=== PATIENT | male | born 1960 | race Caucasian/White ===

== ENCOUNTER 2018-10-10 08:37 | Observation (INO) ==
--- NOTE | 2018-10-10 09:08 | Emergency Department Note ---
Disposition Clinical Impression: Near syncope, Palpitations Chest pain Qualifiers: Chest pain type: unspecified Qualified Code(s): R07.9 - Chest pain, unspecified Disposition: Admitted As Inpatient Condition: Fair Time of Disposition: 12:57 General Adult HPI - General Chief complaint: ED General Medical Stated complaint: Left leg injury,congestion,palpitations Time Seen by Provider: 10/10/18 09:04 Source: patient Mode of arrival: ambulatory Limitations: no limitations Nursing Notes Reviewed: Yes Vital Signs Reviewed: Yes - History of Present Illness HPI Narrative: Patient is a 57-year-old male presenting with chest pain and congestion. 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 Patient is presenting with 1 week of intermittent chest pain, which she describes to be in the middle of his chest, discusses as a sharp shooting pain with associated shortness of breath on exertion. He is also had a dry cough for the past week and a half. No production, no fevers or chills. He denies any diaphoresis, nausea or vomiting. He also has associated palpitations and feeling as though his heart is racing, he is concerned as he has had difficulty with his pacemaker in the past and lead placement. Patient also reports occasional lightheaded and dizziness, this is also appears to be exertional in nature. He states that he has not had a syncopal episodes. He has had similar episodes in the past, at th at point in time it was due to pacemaker malfunction. He is concerned this is happening again. Patient also states that yesterday, he was getting out of his van, stepped down and heard a snap to his left lower leg, he denies any knee or ankle pain. He states that at the posterior calf region. He denies any leg swelling, erythema, numbness or tingling or change in strength. He has a chronic foot drop which is not worsened. He has been able to walk without difficulty since this time. Pain Scale: 9 - Related Data Home Medications Medication Instructions Recorded Confirmed Allopurinol [Zyloprim 100 MG] 100 mg PO DAILY 09/27/15 07/28/18 Cholecalciferol (D-3) [Vitamin D] 1,000 unit PO DAILY 01/02/17 07/28/18 metFORMIN [Glucophage] 500 mg PO DAILY 09/04/17 07/28/18 Allergies Allergy/AdvReac Type Severity Reaction Status Date / Time hydromorphone [From Dilaudid] AdvReac Nausea Verified 10/10/18 08:39 oxycodone [Oxycodone] AdvReac Nausea Verified 10/10/18 08:39 simvastatin AdvReac See Verified 10/10/18 08:39 Comments All systems ED: reviewed and negative except as stated. Review of Systems: As Per HPI Constitutional: Denies: fever, chills ENT ED: Reports: congestion Cardiovascular: Reports: chest pain, palpitations, dyspnea on exertion. Denies: orthopnea, edema, syncope Respiratory: Reports: cough, dyspnea, wheezes. Denies: hemoptysis, sputum production Gastrointestinal: Denies: abdominal pain, nausea, vomiting, diarrhea, hematemesis Genitourinary: Denies: urgency, dysuria, frequency Musculoskeletal: Denies: back pain Integumentary: Denies: rash Neurological: Denies: headache, weakness, numbness, confusion Endocrine: Denies: fatigue Past Medical History - Past Medical History Medical history: Reports: non-contributory, arthritis, diabetes, GERD, hyperlipidemia, hypertension, other Surgical history: Reports: other Psychiatric history: Reports: anxiety - Social History Smoking Status: Never smoker Smokeless Tobacco Status: No Alcohol use: Reports: none Drug use: Reports: none Physical Exam - General Limitations: no limitations General appearance: alert, in no apparent distress - Head Head exam: atraumatic, normocephalic, normal inspection - Eye Eye exam: Present: normal appearance, PERRL, EOMI - ENT ENT exam: normal exam, normal oropharynx, mucous membranes moist - Neck Neck exam: Present: normal inspection, full ROM, trachea midline - Chest Chest inspection: Present: normal inspection, symmetric chest wall rise - Respiratory Respiratory exam: Present: other (Patient with diffuse expiratory wheezing, prolonged expiratory phase, patient with also rhonchi to the left base, no crackles) - Cardiovascular Cardiovascular exam: Present: regular rate, normal rhythm, normal heart sounds - Abdominal Exam Abdominal exam: Present: soft, Non-Tender. Absent: tenderness, distention, guarding, rebound, rigidity - Extremities Exam Extremities exam: Present: normal capillary refill, other (Patient with chronic weakness in the left leg, with a foot drop, therefore has weakened dorsiflexion, and this is unchanged from his baseline, pulses distally are intact, sensation is intact, no change in chronic strength weakness to the left side, and no change to the right side, able to move all 4 extremities, patient does have tenderness to palpation to the posterior calf the left leg, without erythema, swelling or palpable cord, there is no family in the tibia, fibula, knee or ankl e, there is no step-off, crepitus or obvious deformity. Range of motion is intact.) - Back Exam Back exam: Present: normal inspection, full ROM. Absent: tenderness - Neurological Exam Neurological exam: Present: alert, oriented X3 - Psychiatric Psychiatric exam: Present: normal affect, normal mood - Skin Skin exam: Present: warm, dry, intact, normal color Course Vital Signs Temperature 98.3 F 10/10/18 08:39 Pulse Rate 74 10/10/18 08:39 Respiratory Rate 18 10/10/18 08:39 Blood Pressure 165/109 10/10/18 08:39 O2 Sat by Pulse Oximetry 99 10/10/18 08:39 Temperature 98.3 F 10/10/18 09:10 Pulse Rate 68 10/10/18 11:09 Respiratory Rate 18 10/10/18 11:09 Blood Pressure 137/78 10/10/18 11:09 O2 Sat by Pulse Oximetry 95 10/10/18 11:09 Oxygen Delivery Oxygen Delivery Room Air Medical Decision Making - [facility] Narrative Medical decision making narrative: Patient is a 57-year-old male who is presenting with chest pain, lightheaded dizziness and presyncopal episodes. Patient on examination is alert 3, in no acute distress. EKG was performed which shows ventricularly paced rhythm without acute ischemic changes. Given concerns, CBC, BMP, troponin, EKG and chest x-ray was performed. The patient has had recurrent symptoms, feels a CTA would be most appropriate to evaluate further chest etiology. CTA shows no acute findings no sign of any pulmonary embolism or congestion. Chest x-ray shows possible atelectasis to the left base, but no acute opacification or infection. Blood work performed including CBC, BMP, troponin are all within normal limits. Patient was walked while here in the ER by the [employer], during this walk became very lightheaded and dizzy and presyncopal, vital signswithin normal limits. Feels though this patient is appropriate for admission at this point in time, with history of pacemaker issues with recurrent symptoms, as well as this chest pain and exertional shortness of breath that is been recurring, pacemaker was interrogated which showed no acute abnormalities. At this point in time, with the patient's agreement disposition will be to admit for further observation and evaluation. - Medical Records Medical records reviewed: Yes I reviewed the patient's medical records. - Lab Data Lab results reviewed: Yes I reviewed the patient's lab results. Result diagrams: 10/10/18 08:52 10/10/18 08:52 Lab Results 10/10/18 10/10/18 Range/Units 08:52 08:52 WBC 8.6 (4.3-11.1) K/mcL RBC 5.26 (4.19-5.50) M/mcL Hgb 15.7 (12.9-16.9) g/dL Hct 49.5 (37.5-50.1) % MCV 94.1 (83.0-100.0) fL MCH 29.8 (28.0-33.3) pg MCHC 31.7 (31.6-35.5) g/dL RDW 12.9 (11.5-14.5) % Plt Count 302 (140-400) K/mcL MPV 8.3 L (9.4-12.4) fL Immature Gran % 0.5 (0-4) % Seg Neutrophils % 56.9 % Lymphocytes % 27.1 % Monocytes % 10.6 % Eosinophils % 3.6 % Basophils % 1.3 % Neutrophils # 4.9 (1.6-8.9) K/mcL Lymphocytes # 2.3 (0.6-4.6) K/mcL Monocytes # 0.9 (0.0-1.3) K/mcL Eosinophils # 0.3 (0.0-0.6) K/mcL Basophils # 0.1 (0.0-0.2) K/mcL Sodium 136 (136-145) mEq/L Potassium 4.5 (3.5-5.1) mEq/L Chloride 100 (98-107) mEq/L Carbon Dioxide 30 H (23-29) mEq/L BUN 14 (6-20) mg/dL Creatinine 0.58 L (0.70-1.30) mg/dL Est GFR ( Amer) > 60 (> 60) Est GFR (Non-Af Amer) > 60 (> 60) BUN/Creatinine Ratio 24 (6-26) Glucose 119 H (70-105) mg/dL Calculated Osmolality 284 (280-300) Calcium 9.5 (8.6-10.3) mg/dL Phosphorus 2.5 L (2.7-4.5) mg/dL Magnesium 1.8 (1.6-2.6) mg/dL Troponin I < 0.03 (< 0.04) ng/mL - Radiology Data Radiology results reviewed: Yes I reviewed the patient's radiology results. Chest X-Ray 10/10/18 08:42 IMPRESSION: Low lung volumes. Mild atelectasis at the left lung base. No acute cardiopulmonary disease. D/ / Trent Mendoza MD / Trent Mendoza MD Interpreting Provider: Trent Mendoza MD Chest CTA 10/10/18 09:56 IMPRESSION: No evidence of pulmonary embolism or acute pulmonary abnormality. D/ / Lenny Stuart MD / Lenny Stuart MD Interpreting Provider: Lenny Stuart MD - EKG Data EKG #1 EKG attestation: Yes I reviewed and interpreted this EKG. EKG results narrative: EKG performed at 0 846 and with ventricular rate of 73, patient with ventricularly paced rhythm without significant ST segment elevation, depression or T-wave changes. Compared to old EKG performed on 08/2018, does appear change as at that point in time it appears to have atrial and ventricular paced rhythm. Overall overt morphology is relatively unchanged. Attestation Statement - Attestation Attestation: I, Genaro Yuan DO, examined this patient [id number] and my medical decision-making was reviewed with Dr. Mercy Yancey , Resident Physician. I agree with the documented findings, disposition and treatment plan as described except to the extent set forth below. I personally supervised and was present for the blood/critical portions of the procedures completed by the resident documented below. Please see my progress notes for details.
[2018-10-10 09:48] LABS: Basophils # 0.1 K/mcL (0.0-0.2); Basophils % 1.3 %; Eosinophils # 0.3 K/mcL (0.0-0.6); Eosinophils % 3.6 %; Hematocrit 49.5 % (37.5-50.1); Hemoglobin 15.7 g/dL (12.9-16.9); Immature Granulocytes % 0.5 % (0-4); Lymphocytes # 2.3 K/mcL (0.6-4.6); Lymphocytes % 27.1 %; Mean Corpuscular HGB Conc 31.7 g/dL (31.6-35.5); Mean Corpuscular Hemoglobin 29.8 pg (28.0-33.3); Mean Corpuscular Volume 94.1 fL (83.0-100.0); Mean Platelet Volume 8.3 fL (9.4-12.4); Monocytes # 0.9 K/mcL (0.0-1.3); Monocytes % 10.6 %; Neutrophils # 4.9 K/mcL (1.6-8.9); Platelet Count 302 K/mcL (140-400); Red Blood Count 5.26 M/mcL (4.19-5.50); Red Cell Distribution Width 12.9 % (11.5-14.5); Segmented Neutrophils % 56.9 %; White Blood Count 8.6 K/mcL (4.3-11.1)
[2018-10-10] MEDS ORDERED: Ipratropium/Albuterol Neb 3 ML IH ONE (09:54)
[2018-10-10] MEDS ORDERED: Isovue-370 500 ML BOTTLE IVP ONE (09:56)
[2018-10-10 10:09] LABS: BUN/Creatinine Ratio 24 (6-26); Blood Urea Nitrogen 14 mg/dL (6-20); Calcium 9.5 mg/dL (8.6-10.3); Carbon Dioxide 30 mEq/L (23-29); Chloride 100 mEq/L (98-107); Glucose 119 mg/dL (70-105); Osmolality,Calculated 284 (280-300); Potassium 4.5 mEq/L (3.5-5.1); Sodium 136 mEq/L (136-145); Troponin I < 0.03 ng/mL (< 0.04); eGFR For African Americans > 60 (> 60); eGFR For Non-African Americans > 60 (> 60)
--- NOTE | 2018-10-10 10:24 | Emergency Department Note ---
Disposition Clinical Impression: Near syncope, Palpitations Disposition: Admitted As Inpatient Condition: Fair Referrals: NONE,PCP [Primary Care Provider] - Forms: ED Satisfaction Letter, Work/School Release Time of Disposition: 12:58 General Adult HPI - General Chief complaint: ED General Medical Stated complaint: Left leg injury,congestion,palpitations Time Seen by Provider: 10/10/18 09:04 Source: patient Limitations: no limitations - History of Present Illness Pain Scale: 9 - Related Data Home Medications Medication Instructions Recorded Confirmed Allopurinol [Zyloprim 100 MG] 100 mg PO DAILY 09/27/15 07/28/18 Cholecalciferol (D-3) [Vitamin D] 1,000 unit PO DAILY 01/02/17 07/28/18 metFORMIN [Glucophage] 500 mg PO DAILY 09/04/17 07/28/18 Allergies Allergy/AdvReac Type Severity Reaction Status Date / Time hydromorphone [From Dilaudid] AdvReac Nausea Verified 10/10/18 08:39 oxycodone [Oxycodone] AdvReac Nausea Verified 10/10/18 08:39 simvastatin AdvReac See Verified 10/10/18 08:39 Comments Past Medical History - Past Medical History Medical history: Reports: non-contributory, arthritis, diabetes, GERD, hyperlipidemia, hypertension, other Surgical history: Reports: other Psychiatric history: Reports: anxiety - Social History Smoking Status: Never smoker Smokeless Tobacco Status: No Alcohol use: Reports: none Drug use: Reports: none Physical Exam - General Limitations: no limitations General appearance: alert Course Vital Signs Temperature 98.3 F 10/10/18 08:39 Pulse Rate 74 10/10/18 08:39 Respiratory Rate 18 10/10/18 08:39 Blood Pressure 165/109 10/10/18 08:39 O2 Sat by Pulse Oximetry 99 10/10/18 08:39 Temperature 98.3 F 10/10/18 09:10 Pulse Rate 68 10/10/18 11:09 Respiratory Rate 18 10/10/18 11:09 Blood Pressure 137/78 10/10/18 11:09 O2 Sat by Pulse Oximetry 95 10/10/18 11:09 Oxygen Delivery Oxygen Delivery Room Air Medical Decision Making - Lab Data Result diagrams: 10/10/18 08:52 10/10/18 08:52 Lab Results 06/23/19 06/23/19 Range/Units 08:52 08:52 WBC 8.6 (4.3-11.1) K/mcL RBC 5.26 (4.19-5.50) M/mcL Hgb 15.7 (12.9-16.9) g/dL Hct 49.5 (37.5-50.1) % MCV 94.1 (83.0-100.0) fL MCH 29.8 (28.0-33.3) pg MCHC 31.7 (31.6-35.5) g/dL RDW 12.9 (11.5-14.5) % Plt Count 302 (140-400) K/mcL MPV 8.3 L (9.4-12.4) fL Immature Gran % 0.5 (0-4) % Seg Neutrophils % 56.9 % Lymphocytes % 27.1 % Monocytes % 10.6 % Eosinophils % 3.6 % Basophils % 1.3 % Neutrophils # 4.9 (1.6-8.9) K/mcL Lymphocytes # 2.3 (0.6-4.6) K/mcL Monocytes # 0.9 (0.0-1.3) K/mcL Eosinophils # 0.3 (0.0-0.6) K/mcL Basophils # 0.1 (0.0-0.2) K/mcL Sodium 136 (136-145) mEq/L Potassium 4.5 (3.5-5.1) mEq/L Chloride 100 (98-107) mEq/L Carbon Dioxide 30 H (23-29) mEq/L BUN 14 (6-20) mg/dL Creatinine 0.58 L (0.70-1.30) mg/dL Est GFR ( Amer) > 60 (> 60) Est GFR (Non-Af Amer) > 60 (> 60) BUN/Creatinine Ratio 24 (6-26) Glucose 119 H (70-105) mg/dL Calculated Osmolality 284 (280-300) Calcium 9.5 (8.6-10.3) mg/dL Phosphorus 2.5 L (2.7-4.5) mg/dL Magnesium 1.8 (1.6-2.6) mg/dL Troponin I < 0.03 (< 0.04) ng/mL Attestation Statement - Attestation Attestation: I, Genaro Yuan DO, examined this patient [id number] and my medical decision-making was reviewed with Dr. Mercy Yancey , Resident Physician. I agre e with the documented findings, disposition and treatment plan as described except to the extent set forth below. I personally supervised and was present for the blood/critical portions of the procedures completed by the resident documented below. Please see my progress notes for details. 57-year-old male presents emergency room with several nondescript complaints. Patient injured his left knee will getting up and felt a pop. His had no gross deformity and is been able to walk on the knee since the event. Patient denies any trauma or injuries otherwise. He is also had intermittent palpitations as well as lightheaded sensation. His only had this one other time in the past when his pacemaker leads were not functioning appropriately and the needed a new pacemaker placed. Patient denies any active chest pain shortness of breath fevers or chills at this time. Currently denying any nausea vomiting or diarrhea. He has no headache no vision change. Lungs are clear heart is regular. Abdomen is soft. No guarding no rigidity no peritoneal symptoms noted at this time. Extremities otherwise normal. Left lower extremity shows mild swelling to the knee but no redness warmth or abnormality. No gross deformity at this time. Patient has chronic foot drop secondary to his muscular dystrophy. Based on the described symptoms, the patient will have EKG chest x- ray CBC chemistry troponin and a lecture light collected here in the emergency department. Discussion will be had about possible CT angiography the chest if the patient's chest x-ray is negative considering his had intermittent persistent cough. Patient will have pacemaker interrogation completed as well. He has no acute neurologic deficits or issues and does not have any concerning findings on physical exam that would justify imaging of the head at this time. Patient is describing lightheadedness and symptoms as similar to previous when he had the pacemaker related issues. Patient is also describing palpitations. Will monitor closely in emergency room until disposition is determined. EKG is reviewed by myself in documented in the resident physician's note. No critical care applied the patient's treatment course at this time. See detailed documentation the physical exam, medical intervention, medical decision-making disposition the resident physician's note. [address] angiography of the chest for any acute signs of pulmonary emboli or infection. The pacemaker was interrogated and all the leads are functioning appropriately with no abnormality. Function is appropriate as well. Patient is otherwise clinical stable. We will discuss the findings and then ambulate the patient on emergency department to see if there is any reproducible symptoms at this time. Patient is otherwise in no distress 1145 Patient walked around the emergency room. Pulse ox is normal but the patient did feel very lightheaded during several different events. Fluids have been provided regarding in the emergency department. Discussion will be had about disposition. 1235 Patient was discussed with the hospitalist Dr. hillman. Patient was symptomatic with walking which is concerning at this time secondary to his described history of identical complaint when he had a cardiac arrhythmia that required pacemaker placement. He did just have his pacemaker replaced in June. There is some concern for decompensated heart condition at this point despite the pacemaker functioning at this time. The results from the pacemaker interrogation otherwise normal. Patient will be admitted for intermittent near-syncopal event secondary to exertion and further cardiac evaluation. No other concerns or issues noted. Patient is otherwise clinical stable to time of admission.
[2018-10-10 10:34] LABS: Magnesium 1.8 mg/dL (1.6-2.6); Phosphorous 2.5 mg/dL (2.7-4.5)
[2018-10-10] MEDS ORDERED: 0.9 % Sodium Chloride 1,000 ML IVC ONE (11:51)
[2018-10-10] MEDS ORDERED: Ondansetron 4 MG/2 ML VIAL IVP PRN (13:46)
[2018-10-10] MEDS ORDERED: Nitroglycerin 0.4 MG TAB.SUBL SL PRN (13:46)
[2018-10-10] MEDS ORDERED: Ipratropium/Albuterol Neb 3 ML IH PRN (13:50)
[2018-10-10] MEDS ORDERED: Dextrose Gel 15 GM/37.5 ML TUBE PO PRN ×2 (13:53)
[2018-10-10] MEDS ORDERED: *HR* Dextrose 50 % in Water (Syg) 50 ML SYRINGE IVP PRN (13:53)
[2018-10-10] MEDS ORDERED: D5% in Water 1,000 ML IVC PRN (13:53)
--- NOTE | 2018-10-10 13:58 | Internal Med History&Physical ---
Date of Encounter: 10/10/18 Time of Encounter: 13:55 Internal Medicine - H&P: HPI Chief complaint: dizzy spell with chest pain Admitted From: Home History of present illness: Mr. Steward is a 57 year old male with history of complete heart block status post pacemaker placement on 07/27/2018, history of diabetes and his history of muscular dystrophy with chronic feet drop, presented to the ER with chief complaint of left leg pain associated with spell of dizziness on intermittent chest pain. Patient had normal cardiac stress test done in July 2018 with normal ejection fraction 70%. After the patient had LHC done in 2012 with mild CAD. The patient states that he develops spell of intermittent severe left-sided chest pain associated with palpitation and dizziness about once a week, the last episode was on last while the patient was sitting on chair he felt dizzy with 3 episodes of chest pain , Lasted for a second associated with the palpitations and sweating and feeling weak, he stated that is all symptoms similar to the situation before the placement of pacemaker. Patient injured his left knee while getting up yesterday and felt a pop and still has severe leg pain especially when put weight on his leg. Patient denies any trauma or injuries otherwise, patient underwent CT angiography of the chest in the ER without any evidence of pulmonary embolism or infection. Also the pacemaker was interrogated and all digits where functioning appropriately with no abnormality. Patient also reports cough with mild shortness of breath mainly on exertion. He denies smoking cigarettes. Patient has mild hyperphosphatemia otherwise all his labs within normal As for the patient reported bilateral arm numbness with pain, patient had wrist arthrodesis on 2018 Past Med Surg Social Fam HX - Past Medical History Medical history: non-contributory, arthritis, diabetes, GERD, hyperlipidemia, hypertension, other Additional medical history: Muscular dystrophy Psychiatric history: anxiety - Past Surgical History Surgical History: other Additional surgical history: back surgery-2001, ear tube as a child, tonsillectomy as a child, colonoscopy-2001, EGD-2008, heart cath no stents placed-2008, left wrist endoscopic carpal tunnel release, repair of scapholunate ligament and reinforced with dorsal capsulodesis-2015, left wrist proximal row c arpectomy left wrist radial styloidectomy left wrist excison of posterior interosseous nerve-2016 - Social History Smoking Status: Never smoker Smokeless Tobacco Status: No Alcohol use: none Drug use: none - Family History Mother Living Status: Still Living Hx Family Cardiac Disorders: Yes Hx Family Cancer: Yes Hx Family Endocrine Disorder: Yes Father Living Status: Still Living Internal Medicine - H&P: Meds Allopurinol [Zyloprim 100 MG] 100 mg PO DAILY 09/27/15 [History] Cholecalciferol (D-3) [Vitamin D] 1,000 unit PO DAILY 01/02/17 [History] metFORMIN [Glucophage] 500 mg PO DAILY 09/04/17 [History] Allergy/AdvReac Type Severity Reaction Status Date / Time hydromorphone [From Dilaudid] AdvReac Nausea Verified 10/10/18 08:39 oxycodone [Oxycodone] AdvReac Nausea Verified 10/10/18 08:39 simvastatin AdvReac See Verified 10/10/18 08:39 Comments All Systems PM: A 10-system review of systems was performed and is negative for pertinent findings except as documented above in the HPI. Review of systems: Review of system: Regarding cardiology respiratory GI endocrine hematology musculoskeletal all negative except for multiple was mentioned in the H&P - Constitutional Vitals: Temp Pulse Resp BP Pulse Ox 98.3 F 67 22 137/78 98 10/10/18 09:10 10/10/18 13:38 10/10/18 13:38 10/10/18 13:38 10/10/18 13:38 Exam: Physical examination: Gen.: Patient is alert and oriented, not in respiratory distress of pain HEENT: perrla , EOMI, no thyroid gland enlargement, no neck mass, supple neck Heart: S1 and S2 elvira, normal sinus rhythm, no cardiac murmur no gallop rhythm Chest: Air entry equal bilaterally, diminished breathing bilaterally with expiratory wheezing Abdomen: Soft nontender nondistended positive bowel sounds, no organomegaly Extremities: No pitting edema, peripheral pulses palpable, no cyanosis , left calf muscle tenderness on palpation Neuro: Able to move all 4 limbs, no focal neurological deficit. Internal Med - H&P Results - Labs CBC & Chem 7: 10/10/18 08:52 10/10/18 08:52 Labs: Short CBC 10/10/18 Range/Units 08:52 WBC 8.6 (4.3-11.1) K/mcL Hgb 15.7 (12.9-16.9) g/dL Hct 49.5 (37.5-50.1) % Plt Count 302 (140-400) K/mcL Neutrophils # 4.9 (1.6-8.9) K/mcL BMP 10/10/18 08:52 Sodium 136 Potassium 4.5 Chloride 100 Carbon Dioxide 30 H BUN 14 Creatinine 0.58 L Glucose 119 H Calcium 9.5 Cardiac Enzymes 10/10/18 Range/Units 08:52 Troponin I < 0.03 (< 0.04) ng/mL - Impressions ITS Impressions Chest X-Ray 10/10/18 08:42 IMPRESSION: Low lung volumes. Mild atelectasis at the left lung base. No acute cardiopulmonary disease. D/ / Trent Mendoza MD / Trent Mendoza MD Interpreting Provider: Trent Mendoza MD Chest CTA 10/10/18 09:56 IMPRESSION: No evidence of pulmonary embolism or acute pulmonary abnormality. D/ / Lenny Stuart MD / Lenny Stuart MD Interpreting Provider: Lenny Stuart MD - Assessment and Plan (1) Dizziness Current Visit: Yes Status: Acute Assessment and plan: Patient describes frequent dizziness spell associated with the palpitation. After the patient reports vision disturbances associated with the spell Pacemaker was interrogated and they are on was found to functioning well Keep the patient on telemetry Check thyroid function test Ordering MRI of the brain to rule out posterior stroke No focal neurological deficit on examination (2) Chest pain Current Visit: Yes Status: Acute Assessment and plan: Patient has atypical chest pain however he has risk factor for chronic diseases include diabetes morbid obesity and complete heart block Patient had normal cardiac stress test done in July 2018 with ejection fraction 70% Admitted the patient on telemetry Start on aspirin 81 mg and nitroglycerin sublingual when necessary for chest pain Consult pipe stem aligner Current troponin The patient has mild wheezing on chest examination was start him on small dose by mouth prednisone defer further cardiac workup to pipe stem aligner Check lipid profile order EKG Qualifiers: Chest pain type: unspecified Qualified Code(s): R07.9 - Chest pain, unspecified (3) Complete heart block Current Visit: No Status: Chronic Assessment and plan: Status post pacemaker placement on July 2018 correct hypophosphetemia (4) Diabetes mellitus Current Visit: No Status: Chronic Assessment and plan: start on sliding scale insulin correction hold metformin on diabetic diet check BS achs Qualifiers: Diabetes mellitus type: type 2 Diabetes mellitus alf insulin use: without alf use Diabetes mellitus complication status: without complication Qualified Code(s): E11.9 - Type 2 diabetes mellitus without complications (5) Muscular atrophy Current Visit: Yes Status: Chronic Assessment and plan: Patient has history of the chronic muscular dystrophy with chronic feet drop Patient got left leg injury while getting up yesterday and felt a pop Order venous Doppler of the legs to rule out DVT or hematoma Pt/Ot evaluation Qualifiers: Muscle atrophy area: foot Laterality: unspecified laterality Qualified Code(s): M62.579 - Muscle wasting and atrophy, not elsewhere classified, unspecified ankle and foot - Time Spent With Patient Total time spent is greater than 50% in coordination of care (as documented) at patient's floor/unit and/or counseling patient:
[2018-10-10 14:28] LABS: Estimated Average Glucose 143 mg/dl
[2018-10-10] MEDS ORDERED: Acetaminophen 325 MG TABLET PO PRN (14:33)
[2018-10-10] MEDS: Insulin LISPRO 300 UNITS/3 ML VIAL SQ SCH (14:54)
[2018-10-10] MEDS: Aspirin 81 MG TAB.CHEW PO SCH (14:59)
[2018-10-10] MEDS: PrednisoLONE Oral Soln 15 MG/5 ML UDC PO SCH (15:00)
[2018-10-10 15:29] LABS: Chol/HDL Ratio 4.3 (0-4.9)
[2018-10-10 15:42] LABS: Thyroid Stimulating Hormone 1.117 mcIU/mL (0.340-5.600)
[2018-10-10 17:07] LABS: Adenovirus Not Detected (Not Detect); Bordetella Pertussis Not Detected (Not Detect); Chlamydophila pneumoniae Not Detected (Not Detect); Coronavirus 229E Not Detected (Not Detect); Coronavirus HKU1 Not Detected (Not Detect); Coronavirus NL63 Not Detected (Not Detect); Coronavirus OC43 Not Detected (Not Detect); Human Metapneumovirus Not Detected (Not Detect); Human Rhinovirus/Enterovirus DETECTED (Not Detect); Influenza A Subtype 2009 H1 Not Detected (Not Detect); Influenza A Untypeable Not Detected (Not Detect); Influenza B Not Detected (Not Detect); Mycoplasma pneumoniae Not Detected (Not Detect); Parainfluenza Virus 1 Not Detected (Not Detect); Parainfluenza Virus 2 Not Detected (Not Detect); Parainfluenza Virus 3 Not Detected (Not Detect); Parainfluenza Virus 4 Not Detected (Not Detect); Respiratory Syncytial Virus Not Detected (Not Detect)
[2018-10-10] MEDS ORDERED: Insulin LISPRO 300 UNITS/3 ML VIAL SQ SCH (21:00)
[2018-10-11 02:23] LABS: Eosinophils % 0.6 %; Immature Granulocytes % 0.6 % (0-4); Lymphocytes % 22.1 %; Mean Corpuscular HGB Conc 31.4 g/dL (31.6-35.5); Mean Corpuscular Volume 95.6 fL (83.0-100.0); Monocytes % 8.7 %; Platelet Count 228 K/mcL (140-400); Red Cell Distribution Width 12.9 % (11.5-14.5); White Blood Count 8.8 K/mcL (4.3-11.1)
[2018-10-11 02:24] LABS: Basophils # 0.1 K/mcL (0.0-0.2); Eosinophils # 0.1 K/mcL (0.0-0.6); Hemoglobin 13.5 g/dL (12.9-16.9); Lymphocytes # 1.9 K/mcL (0.6-4.6); Monocytes # 0.8 K/mcL (0.0-1.3); Neutrophils # 5.9 K/mcL (1.6-8.9)
[2018-10-11 02:30] LABS: INR 1.1
[2018-10-11 02:46] LABS: Alanine Aminotransferase 19 Units/L (7-52); Albumin 3.8 g/dL (3.5-5.7); Albumin/Globulin Ratio 1.3 (1.1-2.2); Alkaline Phosphatase 78 Units/L (34-104); Aspartate Amino Transferase 19 Units/L (13-39); BUN/Creatinine Ratio 26 (6-26); Bilirubin,Total 0.4 mg/dL (0.3-1.0); Blood Urea Nitrogen 17 mg/dL (6-20); Carbon Dioxide 25 mEq/L (23-29); Chloride 103 mEq/L (98-107); Glucose 118 mg/dL (70-105); Magnesium 1.8 mg/dL (1.6-2.6); Osmolality,Calculated 283 (280-300); Potassium 4.4 mEq/L (3.5-5.1); Sodium 135 mEq/L (136-145); Total Protein 6.8 g/dL (6.4-8.9); Troponin I < 0.03 ng/mL (< 0.04); eGFR For African Americans > 60 (> 60); eGFR For Non-African Americans > 60 (> 60)
[2018-10-11] MEDS ORDERED: *HR* LORazepam 2 MG/ML VIAL IVP ONE (07:00)
[2018-10-11] MEDS: Insulin LISPRO 300 UNITS/3 ML VIAL SQ SCH ×2 (08:25→12:32)
[2018-10-11] MEDS: PrednisoLONE Oral Soln 15 MG/5 ML UDC PO SCH (08:42)
[2018-10-11] MEDS: Aspirin 81 MG TAB.CHEW PO SCH (08:42)
[2018-10-11] MEDS ORDERED: Cholecalciferol (D-3) 1,000 UNIT TABLET PO SCH (09:00)
--- NOTE | 2018-10-11 10:44 | Electrocardiograph Report ---
[address] [address] Test Date: 2018-10-10 Pat Name: Gary Steward Department: 104 Room: 3B64 Gender: M Housing Case Manager: Moise : 1960 Requested By: Genaro Yuan Order Number: [id number] Reading MD: Tad James Measurements Intervals [place] Rate: 73 P: 57 TX: 161 QRS: -63 QRSD: 165 T: 130 QT: 421 QTc: 447 Interpretive Statements ELECTRONIC VENTRICULAR PACEMAKER Electronically Signed On 10-11-2018 10:43:27 EDT by Tad James
--- NOTE | 2018-10-11 11:44 | Cardiology Consult Note ---
<Shanna Sacnhez - Last Filed: 10/11/18 11:57> Date of Encounter: 10/11/18 Time of Encounter: 10:00 Assessment and Plan (1) Atypical chest pain Current Visit: No Status: Acute Per cardiology: -Patient reports atypical chest pain. States it felt like "3 shocks from my pacemaker." -Pacemaker was interrogated by ER. Report personally reviewed, with normal functioning pacemaker, no events. -Denies exertional chest pain. -Stress test 07/2018 negative for ischemia, possible infarct vs pacing artifact noted. -[facility] 2012 with mild, non-obstructive CAD. -TTE 07/2018 LVEF preserved, no wall motion abnormalities noted. -Denies current chest pain, -ECG with paced rhythm. -Troponins negative. -Will discuss and review with . (2) Pacemaker Current Visit: Yes Status: Acute Per cardiology: -Recent pacemaker 07/2018. -Device interrogated with normal function, no events. -Chest x-ray with stable pacemake position and lead placement. Discussion w patient/family: The assessment and plan as outlined above was discussed with the patient and/or family members who expressed understanding and agreement. All questions were answered. Thank you for involving us in the care of your patient. Please call with any questions. Discussed and reviewed with . History of Present Illness Consult date: 10/10/18 Requesting physician: August Marley Consult reason: chest pain Chief complaint: dizziness, weakness, leg injury History of present illness: Mr. Steward is a 58 year old male with a relevant past medical history of complete heart block s/p pacemaker 07/2018, muscular dystrophy, DM, HTN, HLD, GERD, insomnia, gastritis, hiatal hernia, ROMI, who presented to [facility] with complaints of left leg injury. While in ER, patient also reported chest pain. Patient also reported weakness, fatigue. Reports dizziness. Reported left sided weakness and numbness also. Regarding chest pain, patient reports he felt "3 shocks from my pacemaker last week." Denies exertional chest pain. Patient states dizziness is mostly with position change. Also complains of cough, congestion, and having a "cold." Denies current chest pain. Past Med Surg Social Fam HX - Past Medical History Attestation: Yes The following information was validated with the patient. Source: patient Medical history: non-contributory, arthritis, diabetes, GERD, hyperlipidemia, hypertension, other Additional medical history: Muscular dystrophy Psychiatric history: anxiety - Past Surgical History Surgical History: other Additional surgical history: back surgery-2001, ear tube as a child, t onsillectomy as a child, colonoscopy-2001, EGD-2008, heart cath no stents placed-2008, left wrist endoscopic carpal tunnel release, repair of scapholunate ligament and reinforced with dorsal capsulodesis-2015, left wrist proximal row carpectomy left wrist radial styloidectomy left wrist excison of posterior interosseous nerve-2016 - Social History Smoking Status: Never smoker Smokeless Tobacco Status: No Alcohol use: none Drug use: none - Family History Mother Living Status: Still Living Hx Family Cardiac Disorders: Yes Hx Family Cancer: Yes Hx Family Endocrine Disorder: Yes Father Living Status: Still Living Hx Family Cardiac Disorders: Yes (heart cath placed 2013) Medications and Allergies Allopurinol [Zyloprim 100 MG] 100 mg PO DAILY 09/27/15 [History] Cholecalciferol (D-3) [Vitamin D] 1,000 unit PO DAILY 01/02/17 [History] metFORMIN [Glucophage] 500 mg PO DAILY 09/04/17 [History] Allergy/AdvReac Type Severity Reaction Status Date / Time hydromorphone [From Dilaudid] AdvReac Nausea Verified 10/10/18 14:01 oxycodone [Oxycodone] AdvReac Nausea Verified 10/10/18 14:01 simvastatin AdvReac See Verified 10/10/18 14:01 Comments All Systems Review: The remainder of the systems were reviewed and are negative - Constitutional Constitutional: fatigue, weakness - Cardiovascular Cardiovascular: as per HPI, chest pain at rest, lightheadedness Physical Examination Vital Signs Temperature 98.3 F 10/10/18 08:39 Pulse Rate 74 10/10/18 08:39 Respiratory Rate 18 10/10/18 08:39 Blood Pressure 165/109 10/10/18 08:39 O2 Sat by Pulse Oximetry 99 10/10/18 08:39 Temperature 97.6 F 10/11/18 07:05 Pulse Rate 66 10/11/18 07:05 Respiratory Rate 16 10/11/18 07:05 Blood Pressure 130/82 10/11/18 07:05 O2 Sat by Pulse Oximetry 96 10/11/18 07:05 Oxygen Delivery Oxygen Delivery Room Air General: Conversant, No Apparent Distress HEENT: Atraumatic, Normocephaly, Mucus Membranes Moist Neck: No JVD, Normal carotid pulses Cardiac: Reg Rate and Rhythm, Normal S1 and S2, No Murmur Lungs: Normal Breath Sounds, No Wheeze, Rales, Rhonchi Neuro: Alert and responsive, No focal deficits noted Abdomen: Soft, Non-Tender Skin: No rashes noted on visualized skin Musculoskeletal: No Chest Wall Tenderness Extremities: No Clubbing, No Cyanosis, No Edema, Normal Pulses Results 10/11/18 01:59 10/11/18 01:59 Lab Results Active Medications Acetaminophen (Tylenol) 325 mg PO Q6HR PRN PRN Reason: Fever Stop: 04/11/19 14:34 Albuterol/Ipratropium (Duoneb) 3 ml IH [id number] PRN PRN Reason: Shortness Of Breath/Wheezing Stop: 04/11/19 13:51 Allopurinol (Zyloprim) 100 mg PO DAILY PENDING SALE TO [facility] Stop: 04/12/19 09:01 Last Admin: 10/11/18 08:42 Dose: 100 mg Documented by: Aspirin (Aspirin) 81 mg PO DAILY PENDING [facility] Stop: 04/11/19 14:01 Last Admin: 10/11/18 08:42 Dose: 81 mg Documented by: Dextrose/Water (Dextrose 50% (Syg)) 25 ml IVP AD PRN PRN Reason: Hypoglycemia Stop: 04/11/19 13:54 Glucagon (Glucagen) 1 mg IM ONCE PRN PRN Reason: Hypoglycemia Stop: 04/11/19 13:54 Glucose (Gluctose) 15 gm PO ONCE PRN PRN Reason: Hypoglycemia Stop: 04/11/19 13:54 Glucose (Gluctose) 30 gm PO ONCE PRN PRN Reason: Hypoglycemia Stop: 04/11/19 13:54 Guaifenesin (Mucinex) 1,200 mg PO BID PENDING SALE TO [facility] Stop: 04/11/19 21:01 Last Admin: 10/11/18 08:42 Dose: 1,200 mg Documented by: Dextrose (Dextrose 5%) 1,000 mls @ 100 mls/hr IVC .Q10H PRN PRN Reason: HYPOGLYCEMIA Stop: 04/11/19 13:54 Insulin Human Lispro (Humalog) 0 units SQ TIDAC PENDING SALE TO [facility]; Protocol Stop: 04/11/19 16:31 Last Admin: 10/11/18 08:25 Dose: Not Given Documented by: Insulin Human Lispro (Humalog) 0 units SQ HS BAO; Protocol Stop: 04/11/19 21:01 Last Admin: 10/10/18 20:14 Dose: Not Given Documented by: Nitroglycerin (Nitroglycerin) 0.4 mg SL Q5MPRN PRN PRN Reason: Chest Pain Stop: 04/11/19 13:47 Ondansetron HCl (Zofran) 4 mg IVP Q6HR PRN; Protocol PRN Reason: Nausea Stop: 04/11/19 13:47 Prednisolone (Prelone) 20 mg PO DAILY BAO Stop: 04/11/19 14:01 Last Admin: 10/11/18 08:42 Dose: 20 mg Documented by: Vitamin D (Vitamin D) 1,000 unit PO DAILY BAO Stop: 04/12/19 09:01 Last Admin: 10/11/18 08:42 Dose: 1,000 unit Documented by: Laboratory Tests 10/10/18 10/10/18 10/10/18 08:52 14:54 15:05 Hgb Creatinine Troponin I < 0.03 < 0.03 Entero/Rhino (PCR) DETECTED A 10/10/18 10/11/18 10/11/18 20:07 01:59 01:59 Hgb 13.5 D Creatinine 0.66 L Troponin I < 0.03 < 0.03 Entero/Rhino (PCR) - Imaging and Cardiology Chest Xray: report reviewed Stress Test: report reviewed Echo: report reviewed - EKG Interpretation EKG results cardiology: personally reviewed (ECG with paced rhythm.), other (Telemetry reviewed with average HR previous 12 hours noted to be 72, paced rhythm.) Consult Discharge Plan - Plan Referrals: Joseph Jones DO [Primary Care Provider] - (Appt has been requested. ) <Tad James - Last Filed: 10/11/18 15:42> Date of Encounter: 10/11/18 - Attending Attestation Patient was seen and evaluated independently by me. Findings, assessment and plan were discussed at length with patient, questions answered. Agree with nurse practitioner's/resident's documentation. Addition as follows, 58yoCM ho DC PPM for 3rd degree AVB 2 months ago , mild CAD (2012 [facility], SPECT no ischemia, apical and inferior pacing artifact vs prior infarct, preserved LVEF 65% w/o RWMA on TTE), muscular dystrophy, DM, HTN, HLD. P/w cough, dyspnea, leg pain, weakness 1 wk. Imp viral URI. Consulted for "PPM shock" last wk with atypical [place]-PPM pocket pain; also chronic occasional dizziness (mostly positional) questionable worsening with dyspnea after PPM. ECG SUPERVISOR MAINTENANCE, tele SUPERVISOR MAINTENANCE or APVP, device check no events, SUPERVISOR MAINTENANCE >99%, AP<50%. Trop negative. BP fluctuation, CTA B/L, RR, no M/G/R, PPM pocket incision healed well w/o erythema, edema or tenderness, no LE edema. CBC nl, no XU. A: URI Atypical chest pain w/ subjective PPM "shock", normal PPM function w/o events New PPM for AVB 2 months ago, SUPERVISOR MAINTENANCE >99%, uncertain whether dizziness and dyspnea related to V pacing Ho mild CAD P: Ask pt to call office if worse dizziness/dyspnea after resolution of URI to rule out pacemaker syndrome (? adjustment of AV delay) Tad James MD, PhD Assessment and Plan Discussion w patient/family: The assessment and plan as outlined above was discussed with the patient and/or family members who expressed understanding and agreement. All questions were answered. Thank you for involving us in the care of your patient. Please call with any questions. History of Present Illness History of present illness: Mr. Steward is a 58 year old male All Systems Review: The remainder of the systems were reviewed and are negative Physical Examination Vital Signs, Last 4 Hours Temp Pulse Resp BP Pulse Ox 10/11/18 12:00 98.5 F 86 16 143/82 93 Results 10/11/18 01:59 10/11/18 01:59 Lab Results 10/10/18 10/10/18 10/10/18 14:54 14:54 20:07 WBC Hgb Hct Plt Count INR Sodium Potassium Chloride Carbon Dioxide BUN Creatinine Glucose Calcium Magnesium Total Bilirubin AST ALT Alkaline Phosphatase Troponin I < 0.03 < 0.03 TSH 1.117 10/11/18 10/11/18 10/11/18 01:59 01:59 01:59 WBC 8.8 Hgb 13.5 D Hct 43.0 Plt Count 228 INR 1.1 Sodium 135 L Potassium 4.4 Chloride 103 Carbon Dioxide 25 BUN 17 Creatinine 0.66 L Glucose 118 H Calcium 9.0 Magnesium 1.8 Total Bilirubin 0.4 AST 19 ALT 19 Alkaline Phosphatase 78 Troponin I < 0.03 TSH
[2018-10-11 15:33] VITALS: BP 129/83
--- NOTE | 2018-10-11 16:01 | Discharge Summary ---
- NOTES TO OUTPATIENT PROVIDER Notes to Outpatient Provider: Follow up with PCP in one week. Date of Encounter: 10/11/18 Time of Encounter: 15:57 - Discharge Diagnosis (1) Bronchitis Priority: Primary Status: Acute (2) Chest pain Priority: Primary Status: Acute Qualifiers: Chest pain type: unspecified Qualified Code(s): R07.9 - Chest pain, unspecified (3) Dizziness Priority: Primary Status: Acute (4) Diabetes mellitus Priority: Secondary Status: Chronic Qualifiers: Diabetes mellitus type: type 2 Diabetes mellitus termite technician insulin use: without skilled nursing use Diabetes mellitus complication status: without complication Qualified Code(s): E11.9 - Type 2 diabetes mellitus without complications (5) HTN (hypertension) Priority: Secondary Status: Chronic Qualifiers: Hypertension type: essential hypertension Qualified Code(s): I10 - Essential (primary) hypertension Hospital course: Mr. Steward is a 58 year old male with known past Mr. hypertension, hyperlipidemia, diabetes type II and sick sinus syndrome status post pacemaker who has been having cough/URI symptoms from past one week, now he presented to ER c/o y/d he felt chest pain and kind of pacemaker firing for 3 times. His initial troponin was negative. He was admitted in the hospital and placed him on manager cardiac. His serial troponin came back is negative. No acute ischemic changes noticed on EKG. He had normal stress test in July. He was evaluated by developmental education instructor who did not recommend any further workup. His respiratory viral panel came back as positive for entero/rhinovirus. He was started on Duoneb and systemic steroids. His symptoms improved today, he is breathing comfortably on RA, denied any CP. So will d/c him home in stable condition today. - Time Spent with Patient Total time spent providing and/or coordinating discharge services: - Discharge Medications Prescriptions: New Albuterol Sulfate [Albuterol Inhaler] 2 puff IH Q6HR PRN #1 hfa.aer.ad PRN Reason: Shortness Of Breath Aspirin 81 mg PO DAILY #30 tab.chew predniSONE [PredniSONE] 20 mg PO DAILY #5 tablet Continued Allopurinol [Zyloprim 100 MG] 100 mg PO DAILY Cholecalciferol (D-3) [Vitamin D] 1,000 unit PO DAILY metFORMIN [Glucophage] 500 mg PO DAILY Home Medications: Allopurinol [Zyloprim 100 MG] 100 mg PO DAILY 09/27/15 [History] Cholecalciferol (D-3) [Vitamin D] 1,000 unit PO DAILY 01/02/17 [History] metFORMIN [Glucophage] 500 mg PO DAILY 09/04/17 [History] Albuterol Sulfate [Albuterol Inhaler] 2 puff IH Q6HR PRN #1 hfa.aer.ad 10/11/18 [Rx] Aspirin 81 mg PO DAILY #30 tab.chew 10/11/18 [Rx] predniSONE [PredniSONE] 20 mg PO DAILY #5 tablet 10/11/18 [Rx] Allergies/Adverse Reactions: Allergy/AdvReac Type Severity Reaction Status Date / Time hydromorphone [From Dilaudid] AdvReac Nausea Verified 10/10/18 14:01 oxycodone [Oxycodone] AdvReac Nausea Verified 10/10/18 14:01 simvastatin AdvReac See Verified 10/10/18 14:01 Comments Date of admission: 10/10/18 13:00 Primary care physician: Joseph Jones DO Consults: 10/10/18 13:46 Consult to Cardiology [CONS] Routine Comment: Consulting Provider: Cardiology Ning Reason for Consult: Chest pain to r/p ACS Call Completed: Yes 10/10/18 14:14 Consult to Physical Therapy [CONS] Routine Comment: Evaluate, develop and implement POC Reason for Consult: pt/ot Does patient have active BEDREST order?: No Is patient medically & hemodynamically stable?: Yes Patient assessed for mobility or mobilized this visit?: Yes 10/11/18 08:42 Consult to Occupational Therapy [CONS] Routine Comment: Evaluate, develop and implement POC Reason for Consult: WEAKNESS, POSSIBLE PLACEMENT Does patient have active BEDREST order?: No Is patient medically & hemodynamically stable?: Yes - Constitutional Vitals: Temp Pulse Resp BP Pulse Ox 98.3 F 81 16 129/83 96 10/11/18 15:32 10/11/18 15:32 10/11/18 15:32 10/11/18 15:32 10/11/18 15:32 General appearance: Present: cooperative, A&O X 3, no acute distress, answers questions appropriately Exam: Gen: Alert, awake, Oriented to time,place and person Chest: Diminished breath sounds B/L, Mild wheezing, No crackles, No rales Heart: S1S2+ RRR No murmurs Abd: Soft, NT, BS +, No organomegaly Ext: No edema, pulses are palpable, No calf tenderness Neuro : No acute focal neuro deficits noticed Skin: No rash. - Patient Status Disposition: Home, Self-Care Condition: Good Overall status at discharge: patient is back to baseline - Discharge Instructions Follow Up With: Joseph Jones DO [Primary Care Provider] - (Appt has been requested. ) - Diet and Activity Activity: increase activity as tolerated Diet: low salt diet
== END 2018-10-11 16:35 | disposition home or self-care (01) ==
LOC: 3BNU 08:37 → EMEROOARM 08:37 → SUATTDRO 13:00 → 3BNU 13:07
PROVIDERS: ADMIT Internal Medicine Nephrology; ATTEND Family Medicine